=== PATIENT | female | born 1965 | race Caucasian/White ===

== ENCOUNTER → 2017-02-25 | Outpatient (CLI) | payer OTHER ==
[~2017-02-25] MED LIST: ASPI81TA82 PO; ESTR0.5T PO; OMEP20TA39 PO; PROG100C PO
[2017-02-25 10:15] LABS: BASOPHIL % 0.1 % (0.0-2.0); EOSINOPHIL # 0.1 TH/MM3 (0-0.4); EOSINOPHIL % 0.9 % (0.0-4.0); HEMO FLAGS DIFF FINAL; LYMPH % 25.6 % (9.0-44.0); LYMPHOCYTE # 1.9 TH/MM3 (1.0-4.8); MEAN CELL VOLUME 91.5 FL (80.0-100.0); MEAN CORPUSCULAR HEMOGLOBIN 30.6 PG (27.0-34.0); MEAN CORPUSCULAR HGB CONC 33.5 % (32.0-36.0); NEUT % 66.4 % (16.0-70.0); PLATELET COUNT 316 TH/MM3 (150-450); RED BLOOD COUNT 4.49 MIL/MM3 (4.00-5.30); RED CELL DISTRIBUTION WIDTH 11.9 % (11.6-17.2); WHITE BLOOD COUNT 7.5 TH/MM3 (4.0-11.0)
[2017-02-25 13:59] LABS: BICARBONATE 26.6 MEQ/L (21.0-32.0); POTASSIUM 4.5 MEQ/L (3.5-5.1)
[2017-02-25 14:10] LABS: INDIRECT BILIRUBIN 0.3 MG/DL (0.0-0.8); TOTAL BILIRUBIN ADULT 0.4 MG/DL (0.2-1.0)
== END ==
LOC: OLAB 09:58
PROVIDERS: ATTEND Family Medicine
DX: R11.11 Vomiting without nausea (principal); R53.83 Other fatigue
CPT/HCPCS: 36415; 80048; 80076; 84443; 85025

== ENCOUNTER → 2017-03-31 | Outpatient (CLI) | payer OTHER ==
[~2017-03-31] VITALS: Ht 154.9 cm; Wt 60.7 kg
[~2017-03-31] MED LIST changes: -ASPI81TA82 PO; +CHLORHEXIDINE GLUCONATE 2 % 1 PACK (2 CLOTHS) TOPICAL PRN; +INSULIN HUMAN REGULAR 1,000 UNITS/10 ML VIAL SQ PRN; +KETAMINE HCL 500 MG/5 ML VIAL ONE; +LACTATED RINGER'S 1000 ML IV PRN; +MEDR2.5T4 PO; +METOPROLOL TARTRATE 25 MG TAB PO PRN; -OMEP20TA39 PO; +ONDANSETRON HCL 4 MG/2 ML VIAL IV PUSH ONE; +POVIDONE IODINE 5% (ANTISEPSIS KIT) 4 APPLICATIONS EACH NARE PRN; +PROPOFOL 200 MG/20 ML AMP IV PUSH ONE; +PROT40TA PO; +SODIUM CHLORID 0.9% 500 ML IV PRN
--- NOTE | 2017-03-31 10:55 | GIPROC ---
[facility] [address] [facility]. [facility], [address] EGD PROCEDURE REPORT EXAM DATE: 03/31/2017 PATIENT NAME: Karuna Garcia MR #: [id number] BIRTHDATE: 1965 ATTENDING: Kevin Foss MD ORDER #: [id number] EMPLOYMENT ADVISOR: Liliane Hagen and Desmond Awan STATUS: outpatient INDICATIONS: The patient is a 51 yr old female here for an EGD due to nausea, vomiting, and bloating PROCEDURE PERFORMED: EGD, diagnostic MEDICATIONS: None and Per Anesthesia. TOPICAL ANESTHETIC: CONSENT: The patient understands the risks and benefits of the procedure and understands that these risks include, but are not limited to: sedation, allergic reaction, infection, perforation and/or bleeding. Alternative means of evaluation and treatment include, among others: physical exam, x-rays, and/or surgical intervention. The patient elects to proceed with this endoscopic procedure. medical equipment was checked for proper function. Hand hygiene and appropriate measures for infection prevention was taken. After the risks, benefits and alternatives of the procedure were thoroughly explained, Informed consent was verified, confirmed and timeout was successfully executed by the treatment team. The patient was anesthetized with topical anesthesia and the Pentax [id number] endoscope was introduced through the mouth and advanced to the third portion of the duodenum. Retroflexed views revealed a hiatal hernia The gastroscope was then slowly withdrawn and removed. ESOPHAGUS: A moderately severe Schatzki ring was found at the gastroesophageal junction. The esophagus was otherwise normal. STOMACH: A 4 cm hiatal hernia was noted. The stomach otherwise appeared normal. DUODENUM: The duodenal mucosa appeared normal in the 3rd part of the duodenum, 2nd part duodenum, and duodenal bulb. ADVERSE EVENTS: There were no complications. IMPRESSIONS: 1. Schatzki ring was found at the gastroesophageal junction 2. The esophagus was otherwise normal 3. 4 cm hiatal hernia 4. The stomach otherwise appeared normal 5. Normal duodenal mucosa in the 3rd part of the duodenum, 2nd part duodenum, and duodenal bulb 6. Retroflexed views revealed a hiatal hernia RECOMMENDATIONS: Gastric emptying study PATIENT CONDITION: stable DISPOSITION: Home REPEAT EXAM: NONE Kevin Foss MD eSigned: Kevin Foss MD 03/31/2017 10:54 AM cc: DOCUMENT ADDENDUM eSigned: Kevin Foss MD 03/31/2017 11:02 AM Reason for addendum: [ ] Correction of inaccurate information [ ] Recently acquired lab/pathology results [x] Additional information Comments: copy to Dr Josué Sepulveda, referring physician PATIENT NAME: Karuna Garcia MR#: [id number]
--- NOTE | 2017-03-31 11:01 | GIPROC ---
[facility] [address] [facility]. [facility], [address] COLONOSCOPY PROCEDURE REPORT EXAM DATE: 03/31/2017 PATIENT NAME: Karuna Garcia MR #: [id number] BIRTHDATE: 1965 ENDOSCOPIST: Kevin Foss MD ORDER #: [id number] [place] BAILIFF: Liliane Hagen and Desmond Awan STATUS: outpatient INDICATIONS: The patient is a 51 yr old female here for a colonoscopy due to average risk patient for colon cancer PROCEDURE PERFORMED: Colonoscopy with polypectomy MEDICATIONS: None and Per Anesthesia. PREP QUALITY: excellent ESTIMATED BLOOD LOSS: None CONSENT: The patient understands the risks and benefits of the procedure and understands that these risks include, but are not limited to: sedation, allergic reaction, infection, perforation and/or bleeding. Alternative means of evaluation and treatment include, among others: physical exam, x-rays, and/or surgical intervention. The patient elects to proceed with this endoscopic procedure. medical equipment was checked for proper function. Hand hygiene and appropriate measures for infection prevention was taken. After the risks, benefits and alternatives of the procedure were thoroughly explained, Informed consent was verified, confirmed and timeout was successfully executed by the treatment team. A digital exam revealed external hemorrhoids The Pentax [id number] endoscope was introduced through the anus and advanced to the terminal ileum which was intubated for a short distance. The instrument was then slowly withdrawn as the colon was fully examined. COLON FINDINGS: Normal terminal ileum. A smooth sessile polyp measuring 5 mm in size was found in the rectosigmoid colon. A polypectomy was performed using snare cautery. The resection was complete and the polyp tissue was completely retrieved. The colon mucosa was otherwise normal. Retroflexion was not performed The scope was then completely withdrawn from the patient and the procedure terminated. PROCEDURE WITHDRAWAL TIME:12minutes ADVERSE EVENTS: There were no complications. IMPRESSIONS: 1. Normal terminal ileum 2. A sessile polyp measuring 5 mm in size was found in the rectosigmoid colon; polypectomy was performed using snare cautery 3. The colon mucosa was otherwise normal 4. Retroflexion was not performed 5. Revealed external hemorrhoids RECOMMENDATIONS: Await biopsy results. Biopsy results will not be ready for 7-10 days. If you don't hear from us in two weeks, call our office for results. RECALL: Return 5 years Colonoscopy Kevin Foss MD eSigned: Kevin Foss MD 03/31/2017 11:01 AM cc: Josué Sepulveda M.D. PATIENT NAME: Karuna Garcia MR#: [id number]
[2017-03-31 11:40] VITALS: BP 113/79; PULSE 97; RESP 18; TEMP 98.4; O2SAT 100
== END ==
LOC: HSDC 07:51
PROVIDERS: ATTEND Internal Medicine Gastroenterology
DX: Z12.11 Encounter for screening for malignant neoplasm of colon (principal); K63.5 Polyp of colon; K64.4 Residual hemorrhoidal skin tags; R11.2 Nausea with vomiting, unspecified; R14.0 Abdominal distension (gaseous); K22.2 Esophageal obstruction; K44.9 Diaphragmatic hernia without obstruction or gangrene
CPT/HCPCS: 00740; 00810; 43235; 45385; 88305; J2405; J7120

== ENCOUNTER → 2017-05-25 | Outpatient (CLI) | payer OTHER ==
[~2017-05-25] MED LIST changes: -CHLORHEXIDINE GLUCONATE 2 % 1 PACK (2 CLOTHS) TOPICAL PRN; -INSULIN HUMAN REGULAR 1,000 UNITS/10 ML VIAL SQ PRN; -KETAMINE HCL 500 MG/5 ML VIAL ONE; -LACTATED RINGER'S 1000 ML IV PRN; -METOPROLOL TARTRATE 25 MG TAB PO PRN; -ONDANSETRON HCL 4 MG/2 ML VIAL IV PUSH ONE; -POVIDONE IODINE 5% (ANTISEPSIS KIT) 4 APPLICATIONS EACH NARE PRN; -PROG100C PO; -PROPOFOL 200 MG/20 ML AMP IV PUSH ONE; -SODIUM CHLORID 0.9% 500 ML IV PRN
[2017-05-25 13:40] LABS: AUTOMATED NEUTROPHIL # 3.6 TH/MM3 (1.8-7.7); BASOPHIL % 0.3 % (0.0-2.0); EOSINOPHIL % 0.7 % (0.0-4.0); HEMATOCRIT 40.8 % (35.0-46.0); HEMO FLAGS DIFF FINAL; LYMPH % 30.4 % (9.0-44.0); LYMPHOCYTE # 1.8 TH/MM3 (1.0-4.8); MEAN CORPUSCULAR HEMOGLOBIN 30.3 PG (27.0-34.0); MEAN CORPUSCULAR HGB CONC 32.6 % (32.0-36.0); MONO % 8.4 % (0.0-8.0); NEUT % 60.2 % (16.0-70.0); PLATELET COUNT 320 TH/MM3 (150-450); RED BLOOD COUNT 4.39 MIL/MM3 (4.00-5.30); WHITE BLOOD COUNT 5.9 TH/MM3 (4.0-11.0)
[2017-05-25 13:52] LABS: ANION GAP 7 MEQ/L (5-15); AST (GOT) 23 U/L (15-37); BICARBONATE 28.5 MEQ/L (21.0-32.0); BLOOD UREA NITROGEN 10 MG/DL (7-18); CHLORIDE 105 MEQ/L (98-107); GLOMERULAR FILTRATION RATE 67 ML/MIN (>89); POTASSIUM 4.2 MEQ/L (3.5-5.1); SODIUM (NA) 140 MEQ/L (136-145)
[2017-05-25 14:04] LABS: WESTERGREN SEDIMENTATION RATE 8 mm/hr (0-30)
[2017-05-25 14:21] LABS: ALKALINE PHOSPHATASE 56 U/L (45-117); ALT (GPT) 20 U/L (10-53); FREE T4 0.96 NG/DL (0.76-1.46); TOTAL BILIRUBIN ADULT 0.3 MG/DL (0.2-1.0)
[2017-05-28 09:50] LABS: VITAMIN B6 4.9 ng/mL (2.1-21.7)
== END ==
LOC: PLAB 09:48
PROVIDERS: ATTEND Specialist
DX: M31.6 Other giant cell arteritis (principal); M79.7 Fibromyalgia; E53.1 Pyridoxine deficiency; E78.4 Other hyperlipidemia; G93.3 Postviral and related fatigue syndromes; R53.1 Weakness; R53.81 Other malaise; R53.83 Other fatigue; N18.9 Chronic kidney disease, unspecified; R68.89 Other general symptoms and signs; G43.109 Migraine with aura, not intractable, without status migrainosus
CPT/HCPCS: 80053; 82607; 84207; 84425; 84439; 84443; 85025; 85652; 86140

== ENCOUNTER → 2017-07-17 | Outpatient (CLI) | payer OTHER ==
[2017-07-17 16:12] LABS: AUTOMATED NEUTROPHIL # 5.9 TH/MM3 (1.8-7.7); BASOPHIL % 0.6 % (0.0-2.0); EOSINOPHIL % 0.4 % (0.0-4.0); HEMATOCRIT 42.2 % (35.0-46.0); HEMO FLAGS DIFF FINAL; LYMPH % 23.4 % (9.0-44.0); MEAN CELL VOLUME 92.8 FL (80.0-100.0); MEAN CORPUSCULAR HEMOGLOBIN 30.9 PG (27.0-34.0); MEAN CORPUSCULAR HGB CONC 33.3 % (32.0-36.0); MONO % 6.3 % (0.0-8.0); NEUT % 69.3 % (16.0-70.0); PLATELET COUNT 314 TH/MM3 (150-450); RED BLOOD COUNT 4.55 MIL/MM3 (4.00-5.30); RED CELL DISTRIBUTION WIDTH 12.8 % (11.6-17.2); WHITE BLOOD COUNT 8.5 TH/MM3 (4.0-11.0)
[2017-07-17 16:29] LABS: ALT (GPT) 21 U/L (10-53); ANION GAP 6 MEQ/L (5-15); AST (GOT) 17 U/L (15-37); BICARBONATE 25.9 MEQ/L (21.0-32.0); BLOOD UREA NITROGEN 13 MG/DL (7-18); CHLORIDE 106 MEQ/L (98-107); GLOMERULAR FILTRATION RATE 59 ML/MIN (>89); GLUCOSE,FASTING 97 MG/DL (74-99); POTASSIUM 4.6 MEQ/L (3.5-5.1); SODIUM (NA) 138 MEQ/L (136-145)
[2017-07-17 16:30] LABS: RHEUMATOID FACTOR TRIGGER LESS THAN 10.0 IU/ML (0.0-14.9)
[2017-07-17 16:31] LABS: ALKALINE PHOSPHATASE 59 U/L (45-117); TOTAL BILIRUBIN ADULT 0.3 MG/DL (0.2-1.0)
[2017-07-17 16:32] LABS: BLOOD, URINE NEG (NEG); GLUCOSE,URINE NEG (NEG); KETONE, URINE NEG (NEG); MUCUS URINE FEW /lpf (OCC); NITRITE,URINE NEG (NEG); PH, URINE 7.5 (5.0-8.5); SQUAMOUS EPITHELIAL CELL URINE 3 /hpf (0-5); URINE COLOR YELLOW (YELLW/STRAW)
[2017-07-17 16:44] LABS: WESTERGREN SEDIMENTATION RATE 6 mm/hr (0-30)
[2017-07-22 11:53] LABS: RHEUMATOID FACTOR 9 IU/mL (<14)
[2017-07-23 03:51] LABS: ANA IFA PATTERN ND (()); ANA IFA TITER ND titer (()); ANA SER QL NEGATIVE (NEGATIVE); SJOGRENS AB SSA <1.0 NEG AI (<1.0 NEGATIVE); SJOGRENS AB SSB <1.0 NEG AI (<1.0 NEGATIVE)
[2017-07-23 07:54] LABS: DS DNA AB(CRITHIDIA) NEGATIVE (NEGATIVE); DS DNA AB(CRITHIDIA)TITER ND (<1:10)
[2017-07-24 03:51] LABS: THROMBIN TIME FOR LA ND sec (13-19)
== END ==
LOC: CLAB 14:57
PROVIDERS: ATTEND Specialist
DX: R76.8 Other specified abnormal immunological findings in serum (principal); D51.3 Other dietary vitamin B12 deficiency anemia; E53.1 Pyridoxine deficiency
CPT/HCPCS: 36415; 80053; 81001; 82570; 82607; 83516; 83921; 84156; 85025; 85597; 85613; 85652; 85730; 86038; 86039; 86140; 86146; 86147; 86160; 86200; 86235; 86255; 86256; 86430; 86431

== ENCOUNTER → 2017-11-09 | Outpatient (CLI) | payer OTHER ==
[2017-11-09 14:45] LABS: HEMATOCRIT 42.1 % (35.0-46.0); HEMOGLOBIN 14.1 GM/DL (11.6-15.3); MEAN CELL VOLUME 92.3 FL (80.0-100.0); MEAN CORPUSCULAR HGB CONC 33.6 % (32.0-36.0); MEAN PLATELET VOLUME 8.1 FL (7.0-11.0); PLATELET COUNT 319 TH/MM3 (150-450); RED BLOOD COUNT 4.56 MIL/MM3 (4.00-5.30); RED CELL DISTRIBUTION WIDTH 12.9 % (11.6-17.2); WHITE BLOOD COUNT 5.7 TH/MM3 (4.0-11.0)
[2017-11-09 14:46] LABS: ALBUMIN 3.7 GM/DL (3.4-5.0); AST (GOT) 18 U/L (15-37); BICARBONATE 26.4 MEQ/L (21.0-32.0); BLOOD UREA NITROGEN 11 MG/DL (7-18); CHLORIDE 107 MEQ/L (98-107); CREATININE 1.12 MG/DL (0.50-1.00); GLOMERULAR FILTRATION RATE 51 ML/MIN (>89); GLUCOSE,FASTING 115 MG/DL (74-99); SODIUM (NA) 140 MEQ/L (136-145)
[2017-11-09 14:47] LABS: ALT (GPT) 18 U/L (10-53); C-REACTIVE PROTEIN LESS THAN 0.29 MG/DL (0.00-0.30)
[2017-11-09 14:49] LABS: ALKALINE PHOSPHATASE 54 U/L (45-117); TOTAL BILIRUBIN ADULT 0.3 MG/DL (0.2-1.0); TOTAL PROTEIN 7.6 GM/DL (6.4-8.2)
[2017-11-09 16:22] LABS: WESTERGREN SEDIMENTATION RATE 12 mm/hr (0-30)
== END ==
LOC: OLAB 10:51
PROVIDERS: ATTEND Specialist
DX: G50.1 Atypical facial pain (principal); R53.83 Other fatigue; M31.6 Other giant cell arteritis; R79.82 Elevated C-reactive protein (CRP)
CPT/HCPCS: 36415; 80053; 85027; 85652; 86140

== ENCOUNTER 2018-04-01 18:55 | Observation (INO) ==
[2018-04-01] MEDS ORDERED: Aspirin 325 MG Tablet PO ONE (19:36)
--- NOTE | 2018-04-01 20:00 | XR ---
EXAM DATE: 04/01/2018 7:51 PM EDT AGE/SEX: 52 years / Female INDICATIONS: Chest pain CLINICAL DATA: This is the patient's initial encounter. Patient reports that signs and symptoms have been present for 1 day and indicates a pain score of 0/10. MEDICAL/SURGICAL HISTORY: . Hypertension. . Appendectomy COMPARISON: [facility] [place], CHEST ONE VIEW EMPLOYMED ONLY, 05/29/2014. . FINDINGS: A single AP view of the chest demonstrates the lungs to be symmetrically aerated without evidence of mass, infiltrate or effusion. The cardiomediastinal contours are unremarkable. Osseous structures a re intact. CONCLUSION: No acute cardiopulmonary process. Electronically signed by: Shiva Castro MD 04/01/2018 7:59 PM EDT
--- NOTE | 2018-04-01 20:03 | CT ---
EXAM DATE: 04/01/2018 7:52 PM EDT AGE/SEX: 52 years / Female INDICATIONS: Left sided temporal pain, nausea, generalized weakness. CLINICAL DATA: This is the patient's initial encounter. Patient reports that signs and symptoms have been present for 1 day and indicates a pain score of 4/10. MEDICAL/SURGICAL HISTORY: None. None. RADIATION DOSE: 34.64 CTDI (mGy) COMPARISON: [facility] [place] BRAIN [place]/O [place], 05/26/2016. . TECHNIQUE: CT of the head without contrast. Using automated exposure control and adjustment of the mA and/or kV according to patient size, radiation dose was kept as low as reasonably achievable to ob tain optimal diagnostic quality images. DICOM format image data is available electronically for revi ew and comparison. FINDINGS: Cerebrum: The ventricles are normal for age. No evidence of midline shift, mass lesion, hemorrhage or acute infarction. No extraaxial fluid collections are seen. Posterior Fossa: The cerebellum and brainstem are intact. The 4th ventricle is midline. The cerebe llopontine angle is unremarkable. Extracranial: The visualized portion of the orbits is intact. Skull: The calvaria is intact. No evidence of skull fracture. CONCLUSION: Negative noncontrast head CT examination. . Electronically signed by: Shiva Castro MD 04/01/2018 8:02 PM EDT
[2018-04-01 20:04] LABS: Baso % (Auto) 0.3 % (0.0-2.0); Eos # (Auto) 0.1 th/mm3 (0.0-0.4); Hematocrit 40.8 % (35.0-46.0); Hemoglobin 13.6 gm/dL (11.6-15.3); Lymph % (Auto) 25.9 % (9.0-44.0); Mean Corpuscular HGB Conc 33.2 % (32.0-36.0); Mean Corpuscular Hemoglobin 30.9 pg (27.0-34.0); Mean Platelet Volume 7.3 fL (7.0-11.0); Mono # (Auto) 0.7 th/mm3 (0.0-0.9); Mono % (Auto) 8.7 % (0.0-8.0); Neut # (Auto) 4.8 th/mm3 (1.8-7.7); Neut % (Auto) 64.1 % (16.0-70.0); Platelet Count 326 th/mm3 (150-450); Red Blood Count 4.39 mil/mm3 (4.00-5.30); Red Cell Distribution Width 12.6 % (11.6-17.2); White Blood Count 7.5 th/mm3 (4.0-11.0)
--- NOTE | 2018-04-01 20:07 | ED ---
HPI General Chief Complaint: Chest Pain Stated Complaint: Dizziness/Chest pain Time Seen by Provider: 04/01/18 19:27 Source: patient Mode of arrival: ambulatory Limitations: no limitations History of Present Illness HPI narrative: 52-year-old female that presents to the ED for evaluation of chest pain as well as dizziness and headache. Per patient she has had this for since this morning. 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 Apparently she started feeling dizzy and now shows an today she has not improved. Per patient she has developed some chest pain and pressure as well as shortness of breath as well. Per patient all started with a headache and dizziness. Per patient is a history of temporal arteritis and this feels different from it. She has had MRIs and workup for in the past and was put on steroids when she was diagnosed. She states that the only medication she currently takes HRT's. She denies any history of CVA, ACS, PEs. Per patient the pressure on the chest is 6 out of 10. Headache is 4 out of 10. Has been taking [id number] remedies with minimal relief. Per patient the symptoms are not improved which is what prompted evaluation. No recent travel. No recent surgeries. She follows with Dr. Laurent for neurology for the headaches and a temporal arteritis. Complete Quality Measures for STEMI Alert Patients Related Data Home Medications Medication Instructions Recorded Confirmed No Known Home Medications 04/01/18 04/01/18 Allergies Allergy/AdvReac Type Severity Reaction Status Date / Time No Known Allergies Allergy Unverified 04/01/18 19:34 Review of Systems ROS: all other systems reviewed are negative [facility] Medical History Medical History Temporal arteritis (Acute) Surgical History Surgical History History of appendectomy (Acute) Hx of tonsillectomy (Acute) Social History Social History Substance History: No History of Abuse Second Hand Smoke Exposure: No Smoking Status: Never smoker How Often Do You Have a Drink Containing Alcohol: Monthly or less Recent Travel in [facility] within the Last 8 Weeks: No Recent Out of Country Travel within the Last 8 Weeks: No Immunization History Tetanus Immunization: Unsure Hx Influenza Vaccine This Season: Yes Exam Narrative Exam Narrative: GENERAL: Well appearing SKIN: Focused skin assessment warm/dry. HEAD: Atraumatic. Normocephalic. EYES: Pupils equal and round. No scleral icterus. No injection or drainage. ENT: No nasal bleeding or discharge. Mucous membranes pink and moist. Tongue is midline. No uvula deviation. NECK: Trachea midline. No JVD. CARDIOVASCULAR: Regular rate and rhythm. No murmur appreciated. Chest pain is not reproducible with touch. RESPIRATORY: No accessory muscle use. Clear to auscultation. Breath sounds equal bilaterally. GASTROINTESTINAL: Abdomen soft, non-tender, nondistended. Hepatic and splenic margins not palpable. MUSCULOSKELETAL: No obvious deformities. No clubbing. No cyanosis. No edema. Full range of motion of the upper and lower extremities bilaterally. 2+ pulses bilaterally. NEUROLOGICAL: Awake and alert. No obvious cranial nerve deficits. Motor grossly within normal limits. Normal speech. PSYCHIATRIC: Appropriate mood and affect; insight and judgment normal. Course Initial Documented Vital Signs Temperature 98.5 F 04/01/18 19:12 Pulse Rate 117 H 04/01/18 19:12 Respiratory Rate 18 04/01/18 19:12 Blood Pressure 163/96 H 04/01/18 19:12 Pulse Oximetry 99 04/01/18 19:12 Last Documented Vital Signs Temperature 98.5 F 04/02/18 04:00 Pulse Rate 85 04/02/18 04:58 Respiratory Rate 16 04/02/18 04:00 Blood Pressure 134/76 04/02/18 04:00 Pulse Oximetry 100 04/02/18 04:00 Medical Decision Making GLORIA Attestation GLORIA supervised visit: Yes Attestation: I, Dr. Mares, have reviewed the advance practice practitioner's documentation and am in agreement, met with the patient face to face, made the diagnosis, and the medical decision making was done by me. *My assessment and Findings: Patient is a 52-year-old female comes in complaining of chest pressure. This started this evening on the way to work. Labs show negative troponin and negative d-dimer. She did feel better after nitro. She will be placed in chest pain center for further management. MDM Narrative Medical decision making narrative: 52-year-old female that presents to the ED for evaluation of chest pain, headache and dizziness. Patient was properly examined and was found to have signs and symptoms of unclear etiology. Labs and imaging were ordered. patient given aspirin. Labs and imaging showed no sign of acute disease. Patient has risk factor of age and taking HRT for ACS. My attending and myself recommendation is to admission for chest pain center rule out the chest pain center. Patient agrees with this. My attending Dr. Anderson herself of the patient agrees with plan. Patient had nitroglycerin here with improvement of symptoms. All questions were answered to the best of my ability. Medical Screen Exam Complete: Yes Emergency Medical Condition: Yes Differential Diagnosis Differential Diagnosis: Chest pain versus typical chest pain versus ACS versus CVA versus migraine headache versus tension headache versus temporal arteritis Medical Records Medical records reviewed: Yes I reviewed the patient's medical records. Lab Data Lab results reviewed: Yes I reviewed the patient's lab results. Lab results narrative: d-dimmer negative troponin and CKMB negative Result diagrams: 04/01/18 19:40 04/01/18 19:40 Lab Results 04/01/18 04/01/18 04/01/18 Range/Units 19:40 19:40 19:40 WBC 7.5 (4.0-11.0) th/mm3 RBC 4.39 (4.00-5.30) mil/mm3 Hgb 13.6 (11.6-15.3) gm/dL Hct 40.8 (35.0-46.0) % MCV 93.0 (80.0-100.0) fL MCH 30.9 (27.0-34.0) pg MCHC 33.2 (32.0-36.0) % RDW 12.6 (11.6-17.2) % Plt Count 326 (150-450) th/mm3 MPV 7.3 (7.0-11.0) fL Neut % (Auto) 64.1 (16.0-70.0) % Lymph % (Auto) 25.9 (9.0-44.0) % [place] % (Auto) 8.7 H (0.0-8.0) % Eos % (Auto) 1.0 (0.0-4.0) % Baso % (Auto) 0.3 (0.0-2.0) % Neut # (Auto) 4.8 (1.8-7.7) th/mm3 Lymph # (Auto) 2.0 (1.0-4.8) th/mm3 [place] # (Auto) 0.7 (0.0-0.9) th/mm3 Eos # (Auto) 0.1 (0.0-0.4) th/mm3 Baso # (Auto) 0.0 (0.0-0.2) th/mm3 WBC Differential . Differential Comment Auto diff final ESR (0-30) mm/hr PT (9.8-11.6) sec INR Ratio APTT (24.3-30.1) sec D-Dimer Quant (PE/DVT) Cancelled Sodium 143 (136-145) meq/L Potassium 3.9 (3.5-5.1) meq/L Chloride 107 (98-107) meq/L Carbon Dioxide 28.0 (21.0-32.0) meq/L Anion Gap 8 (5-15) meq/L BUN 9 (7-18) mg/dL Creatinine 1.00 (0.50-1.00) mg/dL Estimated GFR 58 L (>89) mL/min Random Glucose 99 (74-106) mg/dL Calcium 9.0 (8.5-10.1) mg/dL Total Bilirubin 0.3 (0.2-1.0) mg/dL AST 16 (15-37) U/L ALT 18 (10-53) U/L Alkaline Phosphatase 54 (45-117) U/L Total Creatine Kinase (26-192) U/L Troponin I Less than 0.02 L (0.02-0.05) ng/mL Total Protein 7.7 (6.4-8.2) g/dL Albumin 3.7 (3.4-5.0) g/dL 04/01/18 04/01/18 04/01/18 Range/Units 19:40 19:40 19:40 WBC (4.0-11.0) th/mm3 RBC (4.00-5.30) mil/mm3 Hgb (11.6-15.3) gm/dL Hct (35.0-46.0) % MCV (80.0-100.0) fL MCH (27.0-34.0) pg MCHC (32.0-36.0) % RDW (11.6-17.2) % Plt Count (150-450) th/mm3 MPV (7.0-11.0) fL Neut % (Auto) (16.0-70.0) % Lymph % (Auto) (9.0-44.0) % [place] % (Auto) (0.0-8.0) % Eos % (Auto) (0.0-4.0) % Baso % (Auto) (0.0-2.0) % Neut # (Auto) (1.8-7.7) th/mm3 Lymph # (Auto) (1.0-4.8) th/mm3 [place] # (Auto) (0.0-0.9) th/mm3 Eos # (Auto) (0.0-0.4) th/mm3 Baso # (Auto) (0.0-0.2) th/mm3 WBC Differential Differential Comment ESR 14 (0-30) mm/hr PT 10.7 (9.8-11.6) sec INR 1.1 Ratio APTT 24.3 (24.3-30.1) sec D-Dimer Quant (PE/DVT) 0.29 Sodium (136-145) meq/L Potassium (3.5-5.1) meq/L Chloride (98-107) meq/L Carbon Dioxide (21.0-32.0) meq/L Anion Gap (5-15) meq/L BUN (7-18) mg/dL Creatinine (0.50-1.00) mg/dL Estimated GFR (>89) mL/min Random Glucose (74-106) mg/dL Calcium (8.5-10.1) mg/dL Total Bilirubin (0.2-1.0) mg/dL AST (15-37) U/L ALT (10-53) U/L Alkaline Phosphatase (45-117) U/L Total Creatine Kinase 52 (26-192) U/L Troponin I (0.02-0.05) ng/mL Total Protein (6.4-8.2) g/dL Albumin (3.4-5.0) g/dL 04/01/18 04/02/18 Range/Units 23:00 02:00 WBC (4.0-11.0) th/mm3 RBC (4.00-5.30) mil/mm3 Hgb (11.6-15.3) gm/dL Hct (35.0-46.0) % MCV (80.0-100.0) fL MCH (27.0-34.0) pg MCHC (32.0-36.0) % RDW (11.6-17.2) % Plt Count (150-450) th/mm3 MPV (7.0-11.0) fL Neut % (Auto) (16.0-70.0) % Lymph % (Auto) (9.0-44.0) % [place] % (Auto) (0.0-8.0) % Eos % (Auto) (0.0-4.0) % Baso % (Auto) (0.0-2.0) % Neut # (Auto) (1.8-7.7) th/mm3 Lymph # (Auto) (1.0-4.8) th/mm3 [place] # (Auto) (0.0-0.9) th/mm3 Eos # (Auto) (0.0-0.4) th/mm3 Baso # (Auto) (0.0-0.2) th/mm3 WBC Differential Differential Comment ESR (0-30) mm/hr PT (9.8-11.6) sec INR Ratio APTT (24.3-30.1) sec D-Dimer Quant (PE/DVT) Sodium (136-145) meq/L Potassium (3.5-5.1) meq/L Chloride (98-107) meq/L Carbon Dioxide (21.0-32.0) meq/L Anion Gap (5-15) meq/L BUN (7-18) mg/dL Creatinine (0.50-1.00) mg/dL Estimated GFR (>89) mL/min Random Glucose (74-106) mg/dL Calcium (8.5-10.1) mg/dL Total Bilirubin (0.2-1.0) mg/dL AST (15-37) U/L ALT (10-53) U/L Alkaline Phosphatase (45-117) U/L Total Creatine Kinase 45 44 (26-192) U/L Troponin I Less than 0.02 L Less than 0.02 L (0.02-0.05) ng/mL Total Protein (6.4-8.2) g/dL Albumin (3.4-5.0) g/dL Imaging Data Attestation: I personally reviewed and interpreted this imaging study as follows : Radiologist's impression: Chest X-Ray 04/01/18 19:36 CONCLUSION: No acute cardiopulmonary process. Head CT 04/01/18 19:36 CONCLUSION: Negative noncontrast head CT examination. . ECG Data Attestation: I personally reviewed and interpreted this ECG as follows: Interpretation: EKG shows sinus tachycardia with a heart rate in the 100s and 90s. No ST elevations or signs of ischemia read by me and attending. Discharge Plan Discharge Disposition Patient Disposition: 30 Still Patient Discharge Details Diagnosis: Chest pain Physicians Team ED Provider: Daly Mares ED Midlevel Provider: Wesley Rivera Primary Care Provider: Josué Sepulveda Attending Provider: Manuelito Oden Status ED Status: Left Department Discharge Information Discharge Date/Time: 04/01/18 22:00
[2018-04-01 20:34] LABS: Activated Partial Thrombo Time 24.3 sec (24.3-30.1); INR 1.1 Ratio; Prothrombin Time 10.7 sec (9.8-11.6)
[2018-04-01 20:35] LABS: Alanine Aminotransferase 18 U/L (10-53); Albumin 3.7 g/dL (3.4-5.0); Anion Gap 8 meq/L (5-15); Aspartate Aminotransferase 16 U/L (15-37); Blood Urea Nitrogen 9 mg/dL (7-18); Chloride 107 meq/L (98-107); Glomerular Filtration Rate 58 mL/min (>89); Glucose,Random 99 mg/dL (74-106); Potassium 3.9 meq/L (3.5-5.1); Sodium 143 meq/L (136-145)
[2018-04-01 20:38] LABS: D-Dimer 0.29 mg/L FEU (0.00-0.50)
[2018-04-01 20:39] LABS: Alkaline Phosphatase 54 U/L (45-117); Total Protein 7.7 g/dL (6.4-8.2)
[2018-04-01] MEDS ORDERED: Acetaminophen 500 MG Tablet PO PRN (21:20)
[2018-04-02 00:31] LABS: Creatine Kinase 45 U/L (26-192)
[2018-04-02 03:27] LABS: Creatine Kinase 44 U/L (26-192)
--- NOTE | 2018-04-02 08:51 | P.HPCA ---
History of Present Illness Primary Care Physician: Josué Sepulveda DO Chief Complaint: Chest pain History of Present Illness: This is a 52-year-old female that presents to the emergency department via private vehicle she was driving to work and developed the chest pressure. States is in the center of her chest. Was a 5 out of 10 lasted about 30 minutes. States she felt nauseous but that is really not unusual for her. She was diaphoretic. She also felt that she could not catch her breath. Has not really had symptoms like this before. Cannot recall prior cardiac evaluation. States that when she arrived to work they will be down to the ED to be evaluated. States she takes hormone replacement therapy but has not noticed any swelling in her legs and has not been any sedentary or long flights or long trips. Patient is a non-smoker. Patient is a history of temporal arteritis and follows Dr. Laurent for that. Denies hypertension, hyperlipidemia, diabetes, and CAD. States that her mother passed rate 71 of heart disease but onset was probably about 10 years earlier. - Diagnosis (1) Chest pain Review of Systems General: Patient denies fevers, chills, and recent travel. HEENT: Patient denies headache, sore throat, difficulty swallowing. Cardiovascular: Has the chest discomfort as mentioned above. Denies sensation of heart beating rapidly or irregularly. No syncope. She was diaphoretic. Respiratory: States she had a hard time catching her breath. Denies inspirational chest discomfort. Denies coughing wheezing or hemoptysis. GI: She was nauseous but that is not unusual for her. Patient denies vomiting, diarrhea, abdominal pain, bloody stools. Musculoskeletal: Patient denies joint pain or edema. Denies calf pain or edema. Neurovascular: Patient denies numbness, tingling, weakness in extremities. Denies headache. Endocrine: Denies polyuria and polydipsia. Hematologic: Denies easy bruising. Skin: Denies rash or itching. PMFSH - History History Provided By: Patient - Medical History Medical History: Medical History (Last Reviewed 04/01/18 @ 20:02 by GLADYS Dodge) Temporal arteritis - Surgical History Surgical History: Surgical History (Last Reviewed 04/01/18 @ 20:02 by GLADYS Dodge) History of appendectomy Hx of tonsillectomy - Tobacco History Second Hand Smoke Exposure: No Tobacco Use In Past 30 Days: No Smoking Status: Never smoker - Alcohol History How Often Do You Have a Drink Containing Alcohol: Monthly or less - Substance Use History Substance History: No History of Abuse - Travel History Recent Travel in the [place] Within the Last 8 Weeks: No Recent Travel Out of the Country Within the Last 8 Weeks: No - Immunization History Tetanus Immunization: Unsure Hx Influenza Vaccine This Season: Yes Medications and Allergies Active Medications: Active Medications Acetaminophen (Tylenol) 500 mg PO Q4H PRN PRN Reason: HEADACHE Hydrocodone Bitart/Acetaminophen (Dawn 7.5/325) 1 tab PO Q4H PRN PRN Reason: PAIN SCALE 1 TO 7 Ondansetron HCl (Zofran Inj) 4 mg IV.PUSH Q6H PRN PRN Reason: NAUSEA Last Admin: 04/02/18 05:13 Dose: 4 mg Sodium Chloride (Ns Flush) 2 ml IV.FLUSH BID DEIDRA Last Admin: 04/02/18 08:41 Dose: 2 ml Sodium Chloride (Ns Flush) 2 ml IV.FLUSH PRN PRN PRN Reason: FLUSH AFTER USING IV ACCESS Allergies Allergy/AdvReac Type Severity Reaction Status Date / Time No Known Allergies Allergy Unverified 04/01/18 19:34 Home Medications Medication Instructions Recorded Confirmed Type No Known Home Medications 04/01/18 04/01/18 History Exam Vital signs: Vital Signs 04/01/18 19:12 04/01/18 20:00 04/01/18 21:00 Temperature 98.5 F Pulse Rate 117 H 96 H 103 H Respiratory Rate 18 16 16 Blood Pressure 163/96 H 162/87 H 140/77 Pulse Oximetry 99 100 100 04/01/18 22:16 04/01/18 22:34 04/02/18 00:08 Temperature 98.4 F Pulse Rate 87 89 90 Respiratory Rate 16 Blood Pressure 133/76 Pulse Oximetry 100 04/02/18 04:00 04/02/18 04:58 04/02/18 08:42 Temperature 98.5 F 97.8 F Pulse Rate 100 H 85 70 Respiratory Rate 16 20 Blood Pressure 134/76 124/73 Pulse Oximetry 100 96 Intake & Output 04/01/18 04/02/18 04/02/18 18:59 06:59 18:59 Weight 57.245 kg Other: Weight On Admission 57.153 kg Narrative: GENERAL: This is a well-nourished, well-developed patient, in no apparent distress. Patient speaks in clear complete sentences. Patient is pleasant. HEENT: Head is atraumatic and normocephalic. Neck is supple without lymphadenopathy and trachea is midline. No JVD or carotid bruits. CARDIOVASCULAR: Regular rate and rhythm without murmurs, gallops, or rubs. RESPIRATORY: Clear to auscultation. Breath sounds equal bilaterally. No wheezes , rales, or rhonchi. Chest wall is nontender. No use of accessory muscles. GASTROINTESTINAL: Abdomen is nontender, nondistended. Abdomen soft. No obvious pulsatile mass or bruit. No CVA tenderness. Strong femoral pulses bilaterally. Normal bowel sounds in all quadrants. MUSCULOSKELETAL: Patient is moving upper and lower extremities freely. No calf tenderness or edema, no Homans sign. Strong pulses in upper and lower extremities. NEUROLOGICAL: Patient is alert and oriented. Cranial nerves 2-12 are grossly intact. No focal deficits and speech is clear. SKIN: No rash and turgor is normal. Results 04/01/18 19:40 04/01/18 19:40 Cardiac Enzymes 04/01/18 04/01/18 04/02/18 Range/Units 19:40 23:00 02:00 AST 16 (15-37) U/L Troponin I Less than 0.02 L Less than 0.02 L Less than 0.02 L (0.02-0.05) ng/mL Coagulation 04/01/18 Range/Units 19:40 PT 10.7 (9.8-11.6) sec APTT 24.3 (24.3-30.1) sec CBC 04/01/18 Range/Units 19:40 WBC 7.5 (4.0-11.0) th/mm3 RBC 4.39 (4.00-5.30) mil/mm3 Hgb 13.6 (11.6-15.3) gm/dL Hct 40.8 (35.0-46.0) % Plt Count 326 (150-450) th/mm3 Neut # (Auto) 4.8 (1.8-7.7) th/mm3 Lymph # (Auto) 2.0 (1.0-4.8) th/mm3 [place] # (Auto) 0.7 (0.0-0.9) th/mm3 Eos # (Auto) 0.1 (0.0-0.4) th/mm3 Baso # (Auto) 0.0 (0.0-0.2) th/mm3 Comprehensive Metabolic Panel 04/01/18 Range/Units 19:40 Sodium 143 (136-145) meq/L Potassium 3.9 (3.5-5.1) meq/L Chloride 107 (98-107) meq/L Carbon Dioxide 28.0 (21.0-32.0) meq/L BUN 9 (7-18) mg/dL Creatinine 1.00 (0.50-1.00) mg/dL Calcium 9.0 (8.5-10.1) mg/dL AST 16 (15-37) U/L ALT 18 (10-53) U/L Alkaline Phosphatase 54 (45-117) U/L Total Protein 7.7 (6.4-8.2) g/dL Albumin 3.7 (3.4-5.0) g/dL Intake and Output 04/01/18 04/02/18 04/02/18 22:59 06:59 14:59 Other: Weight 57.245 kg Weight On Admission 57.153 kg EKG interpretations - EKG EKG shows: tachycardia, sinus rhythm (EKGs have been sinus rhythm to sinus tachycardia rate [address] segment depressions or elevations.) Caprini VTE Risk Assessment Caprini VTE Risk Assessment: No/Low Risk (score <= 1) Caprini Risk Assessment Model: Point Value = 1 Point Value = 2 Point Value = 3 Point Value = 5 Age 41-60 Minor surgery BMI > 25 kg/m2 Swollen legs Varicose veins or History of unexplained or recurrent spontaneous Oral contraceptives or hormone replacement Sepsis (< 1 month) Serious lung disease, including pneumonia (< 1 month) Abnormal pulmonary function Acute myocardial infarction Congestive heart failure (< 1 month) History of inflammatory bowel disease Medical patient at bed rest Age 61-74 Arthroscopic surgery Major open surgery (> 45 min) Laparoscopic surgery (> 45 min) Malignancy Confined to bed (> 72 hours) Immobilizing plaster cast Central venous access Age >= 75 History of VTE Family history of VTE Factor V Leiden Prothrombin [id number] Lupus anticoagulant Anticardiolipin antibodies Elevated serum homocysteine Heparin-induced thrombocytopenia Other congenital or acquired thrombophilia Stroke (< 1 month) Elective arthroplasty Hip, pelvis, or leg fracture Acute spinal cord injury (< 1 month) Prophylaxis Regimen: Total Risk Factor Score Risk Level Prophylaxis Regimen 0-1 Low Early ambulation 2 Moderate Order ONE of the following: *Sequential Compression Device (SCD) *Heparin 5000 units SQ BID 3-4 Higher Order ONE of the following medications: *Heparin 5000 units SQ TID *Enoxaparin/Lovenox 40 mg SQ daily (WT < 150 kg, CrCl > 30 mL/min) *Enoxaparin/Lovenox 30 mg SQ daily (WT < 150 kg, CrCl > 10-29 mL/min) *Enoxaparin/Lovenox 30 mg SQ BID (WT < 150 kg, CrCl > 30 mL/min) AND/OR *Sequential Compression Device (SCD) 5 or more Highest Order ONE of the following medications: *Heparin 5000 units SQ TID (Preferred with Epidurals) *Enoxaparin/Lovenox 40 mg SQ daily (WT < 150 kg, CrCl > 30 mL/min) *Enoxaparin/Lovenox 30 mg SQ daily (WT < 150 kg, CrCl > 10-29 mL/min) *Enoxaparin/Lovenox 30 mg SQ BID (WT < 150 kg, CrCl > 30 mL/min) AND *Sequential Compression Device (SCD) Assessment and Plan - Assessment (1) Chest pain Code(s): R07.9 - Chest pain, unspecified Status: Acute - Plan * Chest pain: Patient has had serial cardiac enzymes and EKGs for ruling out purposes. She was seen by Dr. Sepulveda of cardiology in the chest pain center. She will undergo a Terrence protocol ETT and likely be discharged home if her stress test is nonischemic with instructions to follow-up PCP and return to ED for interval issues. H&P: Quality - VTE Deep Vein Thrombosis/Pulmonary Embolism Present on Admission: No
--- NOTE | 2018-04-02 10:42 | TR ---
Date Performed: 04/02/2018 Time Performed: 09:33:07 DOCTOR: Humberto Sepulveda DRUG LIST: CLINICAL HISTORY: REASON FOR TEST: REASON FOR ENDING: OBSERVATION: CONCLUSION: EDEN PROTOCOL. NO CP. MILD SOB. TEST STOPPED AFTER EXCEEDING GOAL HR SECONDARY TO V HRONIC HIP PAIN.Maximum LE=358 % Max HR Vmttcivc=796.0% Total Exercise Time=2:31 COMMENTS: Conclusion: Normal treadmill exercise. No evidence of ischemia.
--- NOTE | 2018-04-02 13:49 | ECG ---
Date Performed: 04/02/2018 Time Performed: 02:08:22 PTAGE: 52 years EKG: Sinus rhythm NORMAL ECG PREVIOUS TRACING : 04/01/2018 23.08 Since previous tracing, no significant change noted DOCTOR: Humberto Sepuvleda Interpretating Date/Time 04/02/2018 13:48:02
--- NOTE | 2018-04-02 13:50 | ECG ---
Date Performed: 04/01/2018 Time Performed: 19:21:28 PTAGE: 52 years EKG: SINUS TACHYCARDIA ABNORMAL RHYTHM ECG PREVIOUS TRACING : 05/26/2016 14.31 Since previous tracing, no significant change noted DOCTOR: Humberto Sepulveda Interpretating Date/Time 04/02/2018 13:50:19
--- NOTE | 2018-04-02 13:50 | ECG ---
Date Performed: 04/01/2018 Time Performed: 23:08:41 PTAGE: 52 years EKG: Sinus rhythm NORMAL ECG PREVIOUS TRACING : 04/01/2018 19.21 Since previous tracing, no significant change noted DOCTOR: Humberto Sepulveda Interpretating Date/Time 04/02/2018 13:49:41
== END 2018-04-02 12:49 | disposition home or self-care (01) ==
LOC: NEPE 18:55 → NEDA 18:55 → NEPHCDU 22:00
PROVIDERS: ADMIT Internal Medicine Cardiovascular Disease; ATTEND Internal Medicine Cardiovascular Disease
DX: M31.6 Other giant cell arteritis; R07.89 Other chest pain; Z79.890 Hormone replacement therapy; R11.0 Nausea; R61 Generalized hyperhidrosis; R42 Dizziness and giddiness